=== PATIENT | female | born 1960 | race Caucasian/White ===

== ENCOUNTER 2016-10-27 13:47 | Emergency (ER) | payer OTHER ==
[2016-10-27 13:53] VITALS: PULSE 88; BMI 31.2
[2016-10-27] MEDS ORDERED: ALBUTEROL SO4 2.5/IPRATROPIUM 0.5 INH SOL 3 ML VIAL.NEB. NEB ONE ×2 (14:59→15:10)
--- NOTE | 2016-10-27 15:09 | PDOC ---
History of Present Illness - General History Source: Patient Exam Limitations: No Limitations - History of Present Illness Initial Comments: 10/27/16 16:53 The patient is a 56-year-old female, accompanied by daughter, with a significant past medical history of asthma, hypertension, acid reflux, peptic ulcers, costochondritis, and arthritis, who presents to the emergency department with a severe cough and shortness of breath for three weeks. The patient reports a persistent cough and shortness of breath, with associated yellow phlegm. She reports chest pain and a burning sensation in her throat secondary to the coughing. She reports waking up sweating and snoring more than usual. The patient had a recent episode of bronchitis and she finished her antibiotics treatment (augmentin and prednisone) one week ago. The patient denies headache and dizziness. The patient denies fever, nausea, vomit, diarrhea and constipation. The patient denies any urinary complaints. Allergies: codeine Social history: Denies smoking, ETOH, or recreational drug use PMD - Dr. Joe Leyva Professor Of Economics: Dr. Elen Uribe <Gypsy Pablo - Last Filed: 10/27/16 16:53> - General History Source: Patient Exam Limitations: No Limitations <Tiera Mcmahan - Last Filed: 10/30/16 10:20> - General Chief Complaint: Blood Pressure Problem Stated Complaint: SEVERE COUGH/HTN/SOB Time Seen by Provider: 10/27/16 14:24 Past History <Gypsy Pablo - Last Filed: 10/27/16 16:53> - Past Medical History Asthma: Yes Cardiac Disorders: Yes (costocondritis, cardiac cath) HTN: Yes - Surgical History Orthopedic Surgery: Yes (left knee arthroscopy) - Psycho/Social/Smoking Cessation Hx Anxiety: No Suicidal Ideation: No Smoking History: Never smoked Have you smoked in the past 12 months: No Information on smoking cessation initiated: No Hx Alcohol Use: No Drug/Substance Use Hx: No Substance Use Type: None <Tiera Mcmahan - Last Filed: 10/30/16 10:20> - Past Medical History Allergies/Adverse Reactions: Allergies Allergy/AdvReac Type Severity Reaction Status Date / Time codeine Allergy Intermediate TACHYCARDIA Verified 10/27/16 13:53 Home Medications: Ambulatory Orders Aspirin [ASA -] 81 mg PO DAILY 03/12/15 Olmesartan/Amlodipin/Hcthiazid [Tribenzor 20-5-12.5 mg Tablet] 1 each PO ASDIR 03/12/15 Ranitidine [Zantac -] 150 mg PO DAILY 03/12/15 Albuterol 0.083% Nebulizer Lu [Ventolin 0.083% Nebulizer Soln -] 1 neb NEB Q6H 10/27/16 Albuterol Sulfate [Proair Respiclick] 90 mcg IH QID 10/27/16 Fluticasone/Vilanterol [Breo Ellipta 100-25 Mcg INH] 1 each IH DAILY 10/27/16 Montelukast Na [Singulair -] 10 mg PO HS 10/27/16 Nebivolol HCl [Bystolic] 5 mg PO DAILY 10/27/16 Prednisone 10 mg PO BID 10/27/16 Review of Systems - Review of Systems Able to Perform ROS?: Yes Comments:: 10/27/16 16:53 GENERAL/CONSTITUTIONAL: Present: (+) diaphoresis No: fever, weakness, loss of appetite. HEAD, EYES, EARS, NOSE AND THROAT: Present: (+) throat discomfort No: change in vision, ear pain, discharge. CARDIOVASCULAR: Present: (+) chest pain No: lightheadedness, palpitations, syncope RESPIRATORY: Present: (+) cough, (+) shortness of breath No: wheezing, hemoptysis, stridor. GASTROINTESTINAL: No: nausea, vomiting, abdominal cramping, diarrhea, rectal bleeding, constipation. GENITOURINARY: No: dysuria, hematuria, frequency, urgency, flank pain. MUSCULOSKELETAL: No: back pain, neck pain, joint pain, muscle swelling or pain SKIN AND BREASTS: No: lesions, pallor, rash or easy bruising. NEUROLOGIC: No: headache, vertigo, paresthesias, weakness ENDOCRINE: No: unexplained weight gain or loss HEMATOLOGIC/LYMPHATIC: No: anemia, easy bleeding, swelling nodes <Pablo,Gypsy - Last Filed: 10/27/16 16:53> *Physical Exam - Vital Signs Last Vital Signs Temp Pulse Resp BP Pulse Ox 99.5 F 88 22 127/80 99 10/27/16 15:20 10/27/16 13:50 10/27/16 15:20 10/27/16 15:20 10/27/16 13:50 - Physical Exam Comments: 10/27/16 16:54 GENERAL: The patient is in no acute distress. HEAD: Normal with no signs of trauma. EYES: PERRLA, EOMI, sclera anicteric, conjunctiva clear. ENT: Ears normal, nares patent, oropharynx clear without exudates. Moist mucous membranes. NECK: Normal range of motion, supple without lymphadenopathy, JVD, or masses. LUNGS: (+) Inspiratory and expiratory wheezing and rhonchi. HEART:Regular rate and rhythm, normal S1 and S2 without murmur, rub or gallop. ABDOMEN: Soft, nontender, normoactive bowel sounds. No guarding, no rebound. EXTREMITIES: Normal range of motion, no edema. No clubbing or cyanosis. No erythema, or tenderness. NEUROLOGICAL: Cranial nerves II through XII grossly intact. Normal speech. No focal neurological deficits. MUSCULOSKELETAL: Back non-tender to palpation, no CVA tenderness SKIN: Warm, Dry, normal turgor, no rashes or lesions noted. <Gypsy Pablo - Last Filed: 10/27/16 16:53> - Vital Signs Last Vital Signs Temp Pulse Resp BP Pulse Ox 88 18 160/111 99 10/27/16 13:50 10/27/16 13:50 10/27/16 13:50 10/27/16 13:50 <Tiera Mcmahan - Last Filed: 10/30/16 10:20> Heart Score/ECG Review #1 ECG reviewed & interpreted by me at: 16:05 10/27/16 16:05 Twelve-lead EKG was performed and reviewed by me. There is normal sinus rhythm with a normal rate of 60 bpm. The axis is normal. The intervals are normal - pr : 128ms, QRS:98ms, QTc:432ms. There are no ST elevations or depressions. T waves nml. <Tiera Mcmahan - Last Filed: 10/30/16 10:20> ED Treatment Course - LABORATORY CBC & Chemistry Diagram: 10/27/16 15:16 10/27/16 15:30 - ADDITIONAL ORDERS Additional order review: Laboratory Results 10/27/16 15:30 Sodium 142 Potassium 3.7 Chloride 106 Carbon Dioxide 28 Anion Gap 8 BUN 13 Creatinine 0.7 Random Glucose 102 Calcium 9.7 10/27/16 15:16 RBC 5.05 MCV 86.1 MCHC 31.9 L RDW 14.3 MPV 9.9 Neutrophils % 74.4 Lymphocytes % 14.9 D Monocytes % 10.1 Eosinophils % 0.2 Basophils % 0.4 - RADIOLOGY Radiograph Interpretation: 10/27/16 16:54 RAD/CHEST X-RAY PORTABLE Reviewed by: Dr. Tiera Mcmahan Interpreted by: Dr. Jeronimo Jay IMPRESSION: No acute pulmonary disease is present. - Medications Given in the ED: ED Medications Discontinued Medications Generic Name Dose Route Start Last Admin Trade Name Alli PRN Reason Stop Dose Admin Albuterol/Ipratropium 1 amp 10/27/16 15:10 10/27/16 15:10 Duoneb - NEB 10/27/16 15:11 1 amp ONCE ONE Administration Methylprednisolone Sodium Succinate 125 mg 10/27/16 15:10 10/27/16 15:28 Solu-Medrol - IVPB 10/27/16 15:11 125 mg ONCE ONE Administration <Gypsy Pablo - Last Filed: 10/27/16 16:53> - LABORATORY CBC & Chemistry Diagram: 10/27/16 15:16 10/27/16 15:30 <Tiera Mcmahan - Last Filed: 10/30/16 10:20> Medical Decision Making - Medical Decision Making A portion of this note was documented by scribe services under my direction. I have reviewed the details of the note, within reason, and agree with the documentation with the following case summary and management plan written by me. Nursing documentation reviewed and incorporated into medical decision making Ms Jared Alcantar is a 56 yo F with a history of Asthma, angina who presents to the ER with a complaint of shortness of breath, coughing, wheezing Pt states she has had these symptoms for the past 2 weeks No associate fevers (although she has been noted to be warm at night) No recent travel No ill contacts Pt has been coughing almost non stop She reportedly does not like taking albuterol She completed a course of Augmentin Is currently on Prednisone DD: Asthma exacerbation, bronchitis, pneumonia 10/27/16 16:09 Laboratory Tests 10/27/16 15:16 WBC 9.1 Hgb 13.9 Hct 43.5 Plt Count 224 Neutrophils % 74.4 Lymphocytes % 14.9 D 10/27/16 16:35 CXR demonstrates no evidence of Pneumonia Pt improved s/p 1 neb and Solumedrol Will discharge to home Pt to continue Prednisone continue nebs as needed Pt to follow up with Professor Of Economics Can prescribe tesselon pearles to help with cough if patient wants <Tiera Mcmahan - Last Filed: 10/30/16 10:20> *DC/Admit/Observation/Transfer - Attestations Scribe Attestion: 10/27/16 16:54 Documentation prepared by Gypsy Pablo, acting as medical sociologist for Tiera Mcmahan MD. <Gypsy Pablo - Last Filed: 10/27/16 16:53> - Discharge Dispostion Admit: No <Tiera Mcmahan - Last Filed: 10/30/16 10:20> Diagnosis at time of Disposition: Asthma exacerbation - Discharge Dispostion Disposition: HOME Condition at time of disposition: Improved - Patient Instructions Printed Discharge Instructions: DI for Asthma -- Adult, DI for Cough -- Adult Additional Instructions: Ms Jared Alcantar Thank you for coming in to the ER today Please continue your prednisone as previously prescribed Please follow up with your designer Please monitor yourself for fevers Return to the ER for any other concerns or complaints
[2016-10-27] MEDS ORDERED: methylPREDNISolone NA SUCC 125 MG/2 ML VIAL IVPB ONE (15:10)
[2016-10-27] MEDS ORDERED: methylPREDNISolone NA SUCC 125 MG/2 ML VIAL ONE (15:24)
[2016-10-27 15:29] VITALS: BP 127/80; TEMP 99.5
[2016-10-27 16:00] LABS: BASOPHIL 0.4 % (0-2.0); EOSINOPHIL 0.2 % (0-4.5); MCH 27.5 pg (25.7-33.7); MCHC 31.9 g/dl (32.0-36.0); MEAN CELL VOLUME 86.1 fl (80-96); MEAN PLT VOLUME 9.9 fl (7.5-11.1); NEUTROPHILS 74.4 % (42.8-82.8); PLATELET COUNT 224 K/MM3 (134-434); RDW 14.3 % (11.6-15.6); WHITE BLOOD COUNT 9.1 K/mm3 (4.0-10.0)
[2016-10-27 16:10] LABS: CALCIUM 9.7 mg/dL (8.5-10.1); CREATININE 0.7 mg/dL (0.55-1.02)
--- NOTE | 2016-10-28 11:22 | EKG ---
Test Reason : Blood Pressure : / mmHG Vent. Rate : 060 BPM Atrial Rate : 060 BPM P-R Int : 128 ms QRS Dur : 098 ms QT Int : 432 ms P-R-T Axes : 057 008 006 degrees QTc Int : 432 ms NORMAL SINUS RHYTHM NO PREVIOUS ECGS AVAILABLE Confirmed by RADHA SCHMITZ MD ([id number]) on 10/28/2016 11:22:06 AM Referred By: Confirmed By:RADHA SCHMIZT MD
== END 2016-10-27 16:58 | disposition home or self-care (01) ==
LOC: JER 13:47
PROC: 3E0F7GC Introduction of Other Therapeutic Substance into Respiratory Tract, Via Natural or Artificial Opening (ICD-10-PCS; principal; 2016-10-27)
PROC: 3E0333Z Introduction of Anti-inflammatory into Peripheral Vein, Percutaneous Approach (ICD-10-PCS; 2016-10-27)
DX: J45.901 Unspecified asthma with (acute) exacerbation (principal); M94.0 Chondrocostal junction syndrome [Tietze]; I10 Essential (primary) hypertension
CPT/HCPCS: 36415; 71010-TC; 80048; 85025; 93005; 93010; 94640; 96374; 99284-25

== ENCOUNTER 2019-02-17 05:05 | Observation (INO) | payer OTHER ==
--- NOTE | 2019-02-17 05:11 | PDOC ---
History of Present Illness - General Stated Complaint: CHEST PAIN Time Seen by Provider: 02/17/19 05:11 - History of Present Illness Initial Comments: 02/17/19 05:13 The patient is a 58 year old female with a history of HTN, Costocondritis, Asthma who presents for evaluation of chest pain and palpitations. The patient is accompanied by family who assist in providing the history. They report onset of left sided chest pressure-like pain with associated palpitations and shortness of breath earlier today that has been persistent prompting her presentation to the ED for further evaluation. They note that the patient's blood pressure was elevated at home as well. The patient otherwise denies fevers, chills, nausea, vomiting, abdominal pain, or changes with urination or bowel movements. Past History - Past Medical History Allergies/Adverse Reactions: Allergies Allergy/AdvReac Type Severity Reaction Status Date / Time codeine Allergy Intermediate TACHYCARDIA Verified 02/17/19 05:23 Home Medications: Ambulatory Orders Aspirin [ASA -] 81 mg PO DAILY 03/12/15 Olmesartan/Amlodipin/Hcthiazid [Tribenzor 20-5-12.5 mg Tablet] 1 each PO ASDIR 03/12/15 Albuterol 0.083% Nebulizer Lu [Ventolin 0.083% Nebulizer Soln -] 1 neb NEB Q6H 10/27/16 Albuterol Sulfate [Proair Respiclick] 90 mcg IH QID 10/27/16 Fluticasone/Vilanterol [Breo Ellipta 100-25 Mcg INH] 1 each IH DAILY 10/27/16 Montelukast Na [Singulair -] 10 mg PO HS 10/27/16 Nebivolol HCl [Bystolic] 5 mg PO DAILY 10/27/16 Amlodipine Besylate [Norvasc -] 5 mg PO DAILY #30 tablet 02/17/19 Pravastatin Sodium 20 mg PO HS 02/17/19 Tizanidine HCl [Zanaflex (Nf) -] 2 mg NR DAILY 02/17/19 Asthma: Yes Cardiac Disorders: Yes (costocondritis, cardiac cath) COPD: No HTN: Yes - Surgical History Orthopedic Surgery: Yes (left knee arthroscopy) - Suicide/Smoking/Psychosocial Hx Smoking History: Never smoked Have you smoked in the past 12 months: No Hx Alcohol Use: No Drug/Substance Use Hx: No Substance Use Type: None Review of Systems - Review of Systems Comments:: 02/17/19 05:15 Constitutional: No fevers, chills, fatigue, malaise HEENT: No Rhinorrhea, nasal congestion, visual changes Cardiovascular: Chest pain, palpitations. No syncope, lightheadedness Respiratory: SOB. No Cough, Hemoptysis, Gastrointestinal: No Abdominal pain, Nausea, Vomiting, Constipation, Diarrhea, Melena Genitourinary: No Dysuria, Frequency, Urgency, Hesitancy, Hematuria, Flank pain Musculoskeletal: No Myalgia, arthralgia Skin: No rashes, itching, bruising, pallor Neurologic: No Headache, Dizziness, Numbness, Weakness, or Tingling Psychiatric: No Hallucinations. No SI or HI *Physical Exam - Physical Exam Comments: 02/17/19 05:16 General Appearance: Nourished. No Apparent Distress HEENT: EOMI, STEVEN. No Pharyngeal Erythema, Tonsillar Exudate, Tonsillar Erythema Neck: No Cervical Lymphadenopathy Respiratory/Chest: Lungs Clear, Normal Breath Sounds. No Crackles, Rales, Rhonchi, Wheezing Cardiovascular: Regular Rhythm, Regular Rate. No Murmur, Gallops, Rubs Gastrointestinal/Abdominal: Normal Bowel Sounds, Soft. No Guarding, Rebound, Tenderness Musculoskeletal: No CVA Tenderness Extremity: Normal Capillary Refill Integumentary: Normal Color, Dry, Warm Neurologic: Fully Oriented, Alert, Normal Mood/Affect, Normal Response, Heart Score/ECG Review - History History: Moderately suspicious - Electrocardiogram EKG: Normal - Age Age: 45-65 - Risk Factors Risk Factors Heart Score: Yes Hx Hypertension, Yes Positive family hx of cardiac disease, Yes Hx Obesity Based on the list above the patient has:: >/=3 risk factors or Hx atherosclerotic disease - Troponin Troponin: </= normal limit - Score Heart Score - Total: 4 #1 ECG reviewed & interpreted by me at: 05:53 02/17/19 05:53 Normal Sinus Rhythm No Acute ST changes HR 60 QRS 88 QTc 424 ED Treatment Course - LABORATORY CBC & Chemistry Diagram: 02/17/19 05:18 02/17/19 05:18 Medical Decision Making - Medical Decision Making 02/17/19 05:17 The patient is a 58 year old female with a history of HTN, Costocondritis, Asthma who presents for evaluation of chest pain and palpitations. Differential includes but is not limited to: ACS, Arrhythmia, Thyroid disfunction, Musculoskeletal, Infectious, Metabolic Derangement. Given the patient's history and physical exam, we will obtain a cbc, cmp, troponin, bnp, tsh, ekg, chest plain film to evaluate further. We will treat with tylenol and continue to monitor and reassess while here in the ED. 02/17/19 06:59 CBC is unremarkable. CMP, troponin, bnp, tsh are still pending. Patient signed out to Dr. Bernal pending lab results. *DC/Admit/Observation/Transfer Diagnosis at time of Disposition: Angina at rest Chest pain Qualifiers: Chest pain type: unspecified Qualified Code(s): R07.9 - Chest pain, unspecified - Discharge Dispostion Disposition: HOME Condition at time of disposition: Improved - Referrals - Patient Instructions - Post Discharge Activity
[2019-02-17] MEDS ORDERED: ACETAMINOPHEN 1000 MG/100 ML VIAL (NON FORMULARY) IVPB ONE (05:12)
[2019-02-17] MEDS ORDERED: ACETAMINOPHEN INJECTION 100 ML IVPB ONE (05:22)
[2019-02-17 05:23] VITALS: BMI 30.4
[2019-02-17 05:46] LABS: BASO % 0.7 % (0-2.0); EOS % 0.9 % (0-4.5); HEMATOCRIT 40.7 % (32.4-45.2); HEMOGLOBIN 13.9 GM/dL (10.7-15.3); MCH 28.7 pg (25.7-33.7); MCHC 34.1 g/dl (32.0-36.0); MEAN CELL VOLUME 84.1 fl (80-96); MEAN PLT VOLUME 9.5 fl (7.5-11.1); MONO % 7.4 % (3.8-10.2); PLATELET COUNT 270 K/MM3 (134-434); RBC 4.84 M/mm3 (3.60-5.2); WHITE BLOOD COUNT 9.7 K/mm3 (4.0-10.0)
[2019-02-17] MEDS ORDERED: NITROGLYCERIN SUBLINGUAL 1/150 0.4 MG TAB SL ONE (06:27)
[2019-02-17] MEDS ORDERED: NITROGLYCERIN SUBLINGUAL 1/150 0.4 MG TAB ONE (06:29)
--- NOTE | 2019-02-17 07:11 | PDOC ---
*Physical Exam - Vital Signs Last Vital Signs Temp Pulse Resp BP Pulse Ox 97.7 F 65 16 153/81 02/17/19 05:05 02/17/19 05:05 02/17/19 05:05 02/17/19 05:05 <Stephanie Bernal - Last Filed: 02/17/19 07:53> - Vital Signs Last Vital Signs Temp Pulse Resp BP Pulse Ox 97.7 F 57 L 17 134/78 100 02/17/19 05:05 02/17/19 07:41 02/17/19 07:41 02/17/19 07:41 02/17/19 07:43 <Sylvie Hess - Last Filed: 02/17/19 07:59> ED Treatment Course - LABORATORY CBC & Chemistry Diagram: 02/17/19 05:18 02/17/19 05:18 - ADDITIONAL ORDERS Additional order review: 02/17/19 05:18 RBC 4.84 MCV 84.1 MCHC 34.1 RDW 13.0 MPV 9.5 Neutrophils % 55.0 D Lymphocytes % 36.0 D Monocytes % 7.4 D Eosinophils % 0.9 D Basophils % 0.7 - Medications Given in the ED: ED Medications Discontinued Medications Generic Name Dose Route Start Last Admin Trade Name Freq PRN Reason Stop Dose Admin Acetaminophen 1,000 mg 02/17/19 05:12 02/17/19 05:37 Ofirmev Injection - IVPB 02/17/19 05:13 1,000 mg ONCE ONE Administration Nitroglycerin 0.4 mg 02/17/19 06:27 02/17/19 06:30 Nitrostat - SL 02/17/19 06:28 0.4 mg ONCE ONE Administration <Stephanie Bernal - Last Filed: 02/17/19 07:53> - LABORATORY CBC & Chemistry Diagram: 02/17/19 05:18 02/17/19 05:18 - ADDITIONAL ORDERS Additional order review: Laboratory Results 02/17/19 05:18 Sodium 145 Potassium 3.7 Chloride 110 H Carbon Dioxide 27 Anion Gap 7 L BUN 13 Creatinine 0.7 Creat Clearance w eGFR 85.95 Random Glucose 101 Calcium 9.9 Total Bilirubin 0.3 AST 26 ALT 29 Alkaline Phosphatase 106 Creatine Kinase 152 Creatine Kinase Index 0.9 CK-MB (CK-2) 1.4 Troponin I < 0.02 B-Natriuretic Peptide 77.6 Total Protein 7.0 Albumin 3.9 TSH 3.80 H 02/17/19 05:18 RBC 4.84 MCV 84.1 MCHC 34.1 RDW 13.0 MPV 9.5 Neutrophils % 55.0 D Lymphocytes % 36.0 D Monocytes % 7.4 D Eosinophils % 0.9 D Basophils % 0.7 - Medications Given in the ED: ED Medications Discontinued Medications Generic Name Dose Route Start Last Admin Trade Name Alli PRN Reason Stop Dose Admin Acetaminophen 1,000 mg 02/17/19 05:12 02/17/19 05:37 Ofirmev Injection - IVPB 02/17/19 05:13 1,000 mg ONCE ONE Administration Nitroglycerin 0.4 mg 02/17/19 06:27 02/17/19 06:30 Nitrostat - SL 02/17/19 06:28 0.4 mg ONCE ONE Administration <Sylvie Hess - Last Filed: 02/17/19 07:59> Medical Decision Making - Medical Decision Making Pt was signed out to me by resident Dr. Hastings, who explained the presentation , ED course, any pending results, and needed interventions. Pending results include chemistry. Pt is currently stable and is lying comfortably. Pt has no active chest pain at this time. 02/17/19 07:12 CMP WNL, troponin negative, BNP 77 Paged hospitalist team for further observation and cardiac consultation. 02/17/19 07:41 Pt admitted to hospitalist team (Dr. Heller). Pt stable and does not currently complain of chest pain, which resolved after tylenol and SL NG. Pt is able to lie comfortably in the bed. Pending admission upstairs. Will obtain second troponin around 8:30 am. 02/17/19 07:53 <Stephanie Bernal - Last Filed: 02/17/19 07:53> - Medical Decision Making pt signed out from overnight team, Dr Mcnamara pending labs, workup heart score 4,moderate risk for ACS/MACE, first trop neg, EKG unremarkable, Admit tele obs for cp, serial trop/EKg and TANIA 02/17/19 07:58 <Sylvie Hess - Last Filed: 02/17/19 07:59> *DC/Admit/Observation/Transfer - Discharge Dispostion Decision to Admit order: Yes <Stephanie Bernal - Last Filed: 02/17/19 07:53> <Sylvie Hess - Last Filed: 02/17/19 07:59> Diagnosis at time of Disposition: Angina at rest Chest pain Qualifiers: Chest pain type: unspecified Qualified Code(s): R07.9 - Chest pain, unspecified - Discharge Dispostion Condition at time of disposition: Stable - Patient Instructions - Post Discharge Activity
[2019-02-17 07:27] LABS: ALBUMIN 3.9 g/dl (3.4-5.0); ALK PHOS 106 U/L (45-117); ANION GAP 7 MMOL/L (8-16); BILIRUBIN,TOTAL 0.3 mg/dL (0.2-1); BLOOD UREA NITROGEN 13 mg/dL (7-18); CALCIUM 9.9 mg/dL (8.5-10.1); CHLORIDE 110 mmol/L (98-107); CO2 27 mmol/L (21-32); CREATININE 0.7 mg/dL (0.55-1.3); GLUCOSE,RANDOM 101 mg/dL (74-106); N-TERMINAL BNP 77.6 pg/ml (5-125); POTASSIUM 3.7 mmol/L (3.5-5.1); SGOT/AST 26 U/L (15-37); SGPT/ALT 29 U/L (13-61); SODIUM 145 mmol/L (136-145)
[2019-02-17] MEDS ORDERED: ALBUTEROL SO4 0.083% IH SOL 2.5 MG/3 ML VIAL.NEB. NEB PRN (08:21)
--- NOTE | 2019-02-17 08:23 | HP ---
Admitting History and Physical - Primary Care Physician PCP: Dr Cesar Katz - Admission Chief Complaint: Chest pain History of Present Illness: Pt is a 58 yo F with PMHx of HTN, Costochondritis, Asthma, angina who presents with chest pain x 1 day. Pt reports chest pain that started around 1am, pressure like, 9/10, below her L breast radiating to the left arm. The pain started suddenly while at rest (sitting and watching TV), was associated with SOB. Was intermittent, lasting 5mins at every interval for about an hour till she presented in the ED. Pt reports persistently high BP for the past week, last documented at home was 168/108. There was associated headache and blurry vision associated with the chest pain, shich has since resolved. In the ED she received tylenol, and sublingual NG, and the pain stopped. She has since remained chest pain free. Pt reports having a stress test last year May [address] Mackenzie Williamson [phone] ([facility]), but had a cardiac catheterization in 2012 after chest pain, without stents. ED course was notable for: BP-153/81 Subling NTG Iv tylenol EKG- normal Trops -negative x1 History Source: Patient, Family Member Limitations to Obtaining History: No Limitations - Past Medical History Cardiovascular: Yes: HTN Pulmonary: Yes: Asthma - Past Surgical History Past Surgical History: Yes: Joint Replacement (B/L arthroscopic Knee surgeries- L knee-2016, R knee-2012, Ankle surgery 2012), Vein Stripping/Ligation (R LE). No: Stent (Cardiac catheterization 2012 without stents-by Dr Dannie Mae [phone]) - Smoking History Smoking history: Never smoked Have you smoked in the past 12 months: No - Alcohol/Substance Use Hx Alcohol Use: No - Social History Usual Living Arrangement: Yes: With Child ADL: Independent History of Recent Travel: No Home Medications - Allergies Allergies/Adverse Reactions: Allergies Allergy/AdvReac Type Severity Reaction Status Date / Time codeine Allergy Intermediate TACHYCARDIA Verified 02/17/19 05:23 - Home Medications Home Medications: Ambulatory Orders Aspirin [ASA -] 81 mg PO DAILY 03/12/15 Olmesartan/Amlodipin/Hcthiazid [Tribenzor 20-5-12.5 mg Tablet] 1 each PO ASDIR 03/12/15 Ranitidine [Zantac -] 150 mg PO DAILY 03/12/15 Albuterol 0.083% Nebulizer Lu [Ventolin 0.083% Nebulizer Soln -] 1 neb NEB Q6H 10/27/16 Albuterol Sulfate [Proair Respiclick] 90 mcg IH QID 10/27/16 Fluticasone/Vilanterol [Breo Ellipta 100-25 Mcg INH] 1 each IH DAILY 10/27/16 Montelukast Na [Singulair -] 10 mg PO HS 10/27/16 Nebivolol HCl [Bystolic] 5 mg PO DAILY 10/27/16 Review of Systems - Review of Systems Constitutional: denies: Chills, Fever Eyes: reports: Blurred Vision Respiratory: denies: Cough, Exercise Intolerance Genitourinary: denies: Burning, Dysuria Neurological: denies: Change in LOC, Confusion, Dizziness, Numbness, Parasthesia , Syncope, Tremors Psychiatric: denies: Anxiety Physical Examination Vital Signs: Vital Signs Temperature 97.7 F 02/17/19 05:05 Pulse Rate 57 L 02/17/19 07:41 Respiratory Rate 17 02/17/19 07:41 Blood Pressure 134/78 02/17/19 07:41 O2 Sat by Pulse Oximetry (%) 100 02/17/19 07:43 Constitutional: Yes: No Distress Eyes: Yes: Conjunctiva Clear, EOM Intact. No: Sclera Icterus HENT: Yes: Atraumatic. No: Pharyngeal Erythema Neck: Yes: Supple Cardiovascular: Yes: Regular Rate and Rhythm, S1, S2. No: JVD, Murmur Respiratory: Yes: CTA Bilaterally Gastrointestinal: Yes: Normal Bowel Sounds, Soft Musculoskeletal: No: Back Pain Edema: No Edema: RLE: Trace (Prior venous stripping) Peripheral Pulses WNL: Yes Neurological: Yes: Alert, Oriented. No: Aphasia, Asterixis, Confusion, Facial Droop, Lethargy, Loss of Sensation, Pre-Existing Deficit ...Motor Strength: WNL Psychiatric: Yes: Alert, Oriented Labs: CBC, BMP 02/17/19 05:18 02/17/19 05:18 Imaging - Results Chest X-ray: Report Reviewed, Image Reviewed (No acute pathology) Assessment/Plan Ambulatory Orders Aspirin [ASA -] 81 mg PO DAILY 03/12/15 Olmesartan/Amlodipin/Hcthiazid [Tribenzor 20-5-12.5 mg Tablet] 1 each PO ASDIR 03/12/15 Ranitidine [Zantac -] 150 mg PO DAILY 03/12/15 Albuterol 0.083% Nebulizer Lu [Ventolin 0.083% Nebulizer Soln -] 1 neb NEB Q6H 10/27/16 Albuterol Sulfate [Proair Respiclick] 90 mcg IH QID 10/27/16 Fluticasone/Vilanterol [Breo Ellipta 100-25 Mcg INH] 1 each IH DAILY 10/27/16 Montelukast Na [Singulair -] 10 mg PO HS 10/27/16 Nebivolol HCl [Bystolic] 5 mg PO DAILY 10/27/16 Current Medications Albuterol Sulfate (Ventolin 0.083% Nebulizer Soln -) 1 amp NEB Q6H PRN PRN Reason: WHEEZING Amlodipine Besylate (Norvasc -) 5 mg PO DAILY [facility] Aspirin (Asa -) 81 mg PO DAILY DEEPA Atorvastatin Calcium (Lipitor -) 80 mg PO HS DEEPA Hydrochlorothiazide (Hctz -) 12.5 mg PO DAILY DEEPA Montelukast Sodium (Singulair -) 10 mg PO HS DEEPA Nebivolol (Bystolic -) 5 mg PO DAILY DEEPA Non-Formulary Medication (Fluticasone/Vilanterol [Breo Ellipta 100-25 Mcg Inh]) 1 each IH DAILY DEEPA Ranitidine HCl (Zantac -) 150 mg PO DAILY DEEPA Valsartan (Diovan -) 160 mg PO DAILY DEEPA Assessment/Plan: Pt is a 58 yo F with PMHx of HTN, Costochondritis, Asthma, angina who presents with chest pain x 1 day #Typical Chest pain Started at rest, associated with SOB, relieved with subling NGL Prior hx of angina -on bystolic Prior cardiac cath w/out stents, recent negative stress test Initial trops -negative- repeat ECHO Resume ASA Start Lipitor Resume BP meds Cardiac monitoring #Hypertension Elevated at home and at presentation Resume home BP meds monitor Repeat trops [id number] 60bpm, nl, intervals and axis, no RIAZ/STD, QTC-424 ECHO #Asthma Mild Intermittent asthma Controlled on Breo Last use of ventolin-1month ago Not in exacerbation Albuterol as needed #Costochondritis No chest pain at this time #FEN No standing fluids Monitor lytes, replete as needed Sodium controlled diet #PPx Resume home ranitidine Lovenox 40mg sq #Dispo Tele obs Pending ECHO and negative trops Visit type - Emergency Visit Emergency Visit: Yes ED Registration Date: 02/17/19 Care time: The patient presented to the Emergency Department on the above date and was hospitalized for further evaluation of their emergent condition. - New Patient This patient is new to me today: Yes Date on this admission: 02/17/19 - Critical Care Critical Care patient: No
[2019-02-17] MEDS ORDERED: PATIENT'S OWN MEDICATION (NON-FORMULARY) (Olmesartan/Amlodipin/Hcthiazid [Tribenzor 20-5-1 PO SCH (08:30)
--- NOTE | 2019-02-17 08:34 | EKG ---
Test Reason : Blood Pressure : / mmHG Vent. Rate : 060 BPM Atrial Rate : 060 BPM P-R Int : 170 ms QRS Dur : 088 ms QT Int : 424 ms P-R-T Axes : 061 008 022 degrees QTc Int : 424 ms NORMAL SINUS RHYTHM NORMAL ECG WHEN COMPARED WITH ECG OF 17-FEB-2019 05:31, PREMATURE VENTRICULAR COMPLEXES ARE NO LONGER PRESENT Confirmed by MD KATELYNN, YINKA ([id number]) on 02/17/2019 8:33:24 AM Referred By: Ronak MARTINEZ Confirmed By:YINKA PACE MD
[2019-02-17] MEDS ORDERED: ASPIRIN 81 MG CHEWABLE TABLETS ONE (08:41)
[2019-02-17] MEDS ORDERED: RANITIDINE HCL 150 MG TABLET (FP) ONE (08:41)
[2019-02-17] MEDS ORDERED: RANITIDINE HCL 150 MG TABLET (FP) PO SCH (10:00)
[2019-02-17] MEDS ORDERED: NEBIVOLOL 5 MG TABLET (FP) PO SCH (10:00)
[2019-02-17] MEDS ORDERED: VALSARTAN 160 MG TABLET (UD) PO SCH (10:00)
[2019-02-17] MEDS ORDERED: ENOXAPARIN NA (PORCINE) 40 MG/0.4 ML DISP.SYRIN SQ SCH (10:00)
[2019-02-17] MEDS ORDERED: HYDROCHLOROTHIAZIDE 12.5 MG CAPSULE (FP) PO SCH (10:00)
[2019-02-17] MEDS ORDERED: amLODIPine BESYLATE 5 MG TABLET (FP) PO SCH (10:00)
[2019-02-17] MEDS ORDERED: ASPIRIN 81 MG CHEWABLE TABLETS PO SCH (10:00)
[2019-02-17 11:07] VITALS: TEMP 98.4
--- NOTE | 2019-02-17 12:39 | ECHO ---
Version: 1 Name: KIKI JACOBO Exam: Adult Echocardiogram Study Date: 02/17/2019, 10:26 AM Age: 58 Years MMode/2D Measurements & Calculations IVSd: 0.76 cm LVIDs: 3.2 cm LVIDd: 4.4 cm LVPWd: 0.82 cm LVOT diam: 1.94 cm Ao root diam: 2.7 cm LA dimension: 3.4 cm Doppler Measurements & Calculations MV E max rudi: 70.1 cm/sec Med E/e': 7.9 MV A max rudi: 84.9 cm/sec Med Peak E' Rudi: 8.9 cm/sec MV E/A: 0.83 Lat E/e': 5.8 Lat Peak E' Rudi: 12.2 cm/sec Ao max P.1 mmHg GELACIO(I,D): 2.7 cm Ao mean P.9 mmHg LV V1 mean: 79.9 cm/sec Ao V2 max: 142.7 cm/sec LV V1 mean P.1 mmHg TR max rudi: 205.2 cm/sec TR max P.8 mmHg Left Ventricle The left ventricular size, thickness and function are normal. Ejection Fraction = 55-60%.. E/A rever belkis consistent with but not diagnostic of poor LV compliance. Right Ventricle The right ventricle is normal in size and function. Atria Normal left and right atrial size and function. Mitral Valve There is mild mitral valve thickening. There is trace mitral regurgitation. Tricuspid Valve The tricuspid valve is not well visualized, but is grossly normal. There is trace tricuspid regurgit ation. Right ventricular systolic pressure is normal. Aortic Valve There is mild to moderate aortic sclerosis.;. No hemodynamically significant valvular aortic stenosi s. Pulmonic Valve The pulmonic valve is not well seen, but is grossly normal. Great Vessels The aortic root is normal size. Pericardium/Pleura There is no pericardial effusion. Summary Statements The left ventricular size, thickness and function are normal. Ejection Fraction = 55-60%. The right ventricle is normal in size and function. Normal left and right atrial size and function. There is mild to moderate aortic sclerosis. No hemodynamically significant valvular aortic stenosis. There is mild mitral valve thickening. There is trace mitral regurgitation. MD Marcos Peng02/17/2019, 11:38 AM Ordering Physician: Francia Beckman Performed By: Adia Roth
--- NOTE | 2019-02-17 15:41 | PN ---
Teaching Attending Note Name of Resident: Francia Beckman ATTENDING PHYSICIAN STATEMENT I saw and evaluated the patient. I reviewed the resident's note and discussed the case with the resident. I agree with the resident's findings and plan as documented except as follows: SUBJECTIVE: Feels better with chest pain but now c/o headache. Other ROS are negative. OBJECTIVE: Unremarkable. Chest pain Not reproducible . ASSESSMENT AND PLAN: Pt is a 58 yo F with PMHx of HTN, Costochondritis, Asthma, angina who presents with chest pain x 1 day # Chest pain probably 2/2 Accelerated HTN Started at rest, associated with SOB, relieved with subling NGL Prior hx of angina -on bystolic Prior cardiac cath w/out stents, recent negative stress test Initial trops -negative- repeat ECHO >>> Unremarkable, w/o any RWM abn. Resume ASA Start Lipitor Resume BP meds Cardiac monitoring f/u with Cardio as outpt. #Hypertension >> Uncontrolled since been on steroid inj. in right shoulder , as per pt. Elevated at home and at presentation Resume home BP meds monitor [id number] 60bpm, nl, intervals and axis, no RIAZ/STD, QTC-424 #Asthma Mild Intermittent asthma Controlled on Breo Last use of ventolin-1month ago Not in exacerbation Albuterol as needed #FEN No standing fluids Monitor lytes, replete as needed Sodium controlled diet #PPx Resume home ranitidine Lovenox 40mg sq #Dispo Tele obs Pending clinical ( BP) stabilization. D/C planning in 24 hours. Plan d/w the patient and the son in details at bedside. Plan d/w the resident as well.
[2019-02-17] MEDS ORDERED: ACETAMINOPHEN 325 MG TABLET (FP) PO PRN (16:45)
[2019-02-17] MEDS ORDERED: ACETAMINOPHEN 325 MG TABLET (FP) ONE (17:14)
[2019-02-17 17:21] VITALS: BP 130/81; PULSE 55
--- NOTE | 2019-02-17 21:06 | DS ---
Physical Exam: SUBJECTIVE: Patient seen and examined. No chest pain, no SOB. BP controlled. Pt c/o of headache, no fevers, no syncope, no neck stiffness, no blurry vision. Negative trops x3, ECHO without hypokinesis. OBJECTIVE: Vital Signs Period Temp Pulse Resp BP Sys/D[place]ont Pulse Ox Last 24 Hr 97.7 F-98.4 F 55-65 14-17 118-153/69-81 100-100 PHYSICAL EXAM GENERAL: The patient is awake, alert, and fully oriented, in no acute respiratory distress. EYES: PERRL, extraocular movements intact, sclera anicteric, conjunctiva clear. ENT: moist mucous membranes. NECK: supple. LUNGS: Breath sounds equal, clear to auscultation bilaterally, no wheezes, no crackles, no accessory muscle use. HEART: Regular rate and rhythm, S1, S2 ABDOMEN: Soft, nontender, nondistended, normoactive bowel sounds EXTREMITIES: 2+ pulses, warm, well-perfused, no edema. NEUROLOGICAL: Cranial nerves II through XII grossly intact. Normal speech, gait not observed. PSYCH: Normal mood, normal affect. SKIN: Warm, dry, normal turgor, no rashes or lesions noted. LABS Laboratory Results - last 24 hr 02/17/19 02/17/19 02/17/19 05:18 05:18 06:30 WBC 9.7 RBC 4.84 Hgb 13.9 Hct 40.7 MCV 84.1 MCH 28.7 MCHC 34.1 RDW 13.0 Plt Count 270 D MPV 9.5 Absolute Neuts (auto) 5.3 Neutrophils % 55.0 D Lymphocytes % 36.0 D Monocytes % 7.4 D Eosinophils % 0.9 D Basophils % 0.7 Nucleated RBC % 0 Sodium 145 Potassium 3.7 Chloride 110 H Carbon Dioxide 27 Anion Gap 7 L BUN 13 Creatinine 0.7 Creat Clearance w eGFR 85.95 Random Glucose 101 Hemoglobin A1c % 5.7 Calcium 9.9 Total Bilirubin 0.3 AST 26 ALT 29 Alkaline Phosphatase 106 Creatine Kinase 152 Creatine Kinase Index 0.9 CK-MB (CK-2) 1.4 Troponin I < 0.02 B-Natriuretic Peptide 77.6 Total Protein 7.0 Albumin 3.9 TSH 3.80 H 02/17/19 02/17/19 10:00 11:40 WBC RBC Hgb Hct MCV MCH MCHC RDW Plt Count MPV Absolute Neuts (auto) Neutrophils % Lymphocytes % Monocytes % Eosinophils % Basophils % Nucleated RBC % Sodium Potassium Chloride Carbon Dioxide Anion Gap BUN Creatinine Creat Clearance w eGFR Random Glucose Hemoglobin A1c % Calcium Total Bilirubin AST ALT Alkaline Phosphatase Creatine Kinase 125 Creatine Kinase Index CK-MB (CK-2) Troponin I < 0.02 < 0.02 B-Natriuretic Peptide Total Protein Albumin TSH Ambulatory Orders Aspirin [ASA -] 81 mg PO DAILY 03/12/15 Olmesartan/Amlodipin/Hcthiazid [Tribenzor 20-5-12.5 mg Tablet] 1 each PO ASDIR 03/12/15 Albuterol 0.083% Nebulizer Lu [Ventolin 0.083% Nebulizer Soln -] 1 neb NEB Q6H 10/27/16 Albuterol Sulfate [Proair Respiclick] 90 mcg IH QID 10/27/16 Fluticasone/Vilanterol [Breo Ellipta 100-25 Mcg INH] 1 each IH DAILY 10/27/16 Montelukast Na [Singulair -] 10 mg PO HS 10/27/16 Nebivolol HCl [Bystolic] 5 mg PO DAILY 10/27/16 Amlodipine Besylate [Norvasc -] 5 mg PO DAILY #30 tablet 02/17/19 Pravastatin Sodium 20 mg PO HS 02/17/19 Tizanidine HCl [Zanaflex (Nf) -] 2 mg NR DAILY 02/17/19 ECHO 02/17/19: LV size, thickness and function are normal. EF- 55%-60%. E/A reversal consistent with but not diagnostic of poor LV compliance. RV is normal in size and function. Normal atrial size and function. There is mild mitral valve thickening. There is trace mitral regurgitation. The tricuspid valve is not well visualized, but is grossly normal. There is trace TR. Right ventricular systolic pressure is normal. HOSPITAL COURSE: Date of Admission:02/17/19 Date of Discharge: 02/17/19 Prehospital Course: Pt is a 58 yo F with PMHx of HTN, Costochondritis, Asthma, angina who presents with chest pain x 1 day. Pt reports chest pain that started around 1am, pressure like, 9/10, below her L breast radiating to the left arm. The pain started suddenly while at rest (sitting and watching TV), was associated with SOB. Was intermittent, lasting 5mins at every interval for about an hour till she presented in the ED. Pt reports persistently high BP for the past week, last documented at home was 168/108. There was associated headache and blurry vision associated with the chest pain, which has since resolved. In the ED she received tylenol, and sublingual NG, and the pain stopped. She has since remained chest pain free. Pt reports having a stress test last year May [address] Mackenzie Williamson [phone] ([facility]), but had a cardiac catheterization in 2012 after chest pain, without stents. Hospital Course: Patient remained chest pain free. Amlodipine was added to her home BP medications and her BP was controlled. Pt received PO tylenol for headache. Pt' s ECHO did not show any regional hypokinesis. She was discharged home to follow with her PCP tomorrow and with her assistant distribution manager in one week's time. Minutes to complete discharge: 35 Discharge Summary Reason For Visit: CHEST PAIN,ANGINA AT REST Current Active Problems Angina at rest (Acute) Chest pain (Acute) Condition: Improved - Instructions Diet, Activity, Other Instructions: You came in for chest pain that resolved after taking nitroglycerin Your blood tests, EKG and ECHO did not show any signs of a heart attack. Your blood pressure was initially high when you came in, but was controlled with your regular blood pressure medications We have added amlodipine to your medications take 5mg daily Continue your other medications as prescribed Follow up with your primary care doctor tomorrow Discuss with him about your new medication Follow up with your assistant distribution manager in one week If you think your symptoms are not getting better, with worsening chest pain, shortness of breath or worsening leg swelling, please go to the nearest emergency room. Referrals: Fede Williamson [Other] - 1 Week Cesar Osuna MD [Primary Care Provider] - 02/18/19 (Follow up for typical chest pain relieved with SL NTG negative trops and EKG and normal ECHO) Disposition: HOME - Home Medications Comprehensive Discharge Medication List: Ambulatory Orders Aspirin [ASA -] 81 mg PO DAILY 03/12/15 Olmesartan/Amlodipin/Hcthiazid [Tribenzor 20-5-12.5 mg Tablet] 1 each PO ASDIR 03/12/15 Albuterol 0.083% Nebulizer Lu [Ventolin 0.083% Nebulizer Soln -] 1 neb NEB Q6H 10/27/16 Albuterol Sulfate [Proair Respiclick] 90 mcg IH QID 10/27/16 Fluticasone/Vilanterol [Breo Ellipta 100-25 Mcg INH] 1 each IH DAILY 10/27/16 Montelukast Na [Singulair -] 10 mg PO HS 10/27/16 Nebivolol HCl [Bystolic] 5 mg PO DAILY 10/27/16 Amlodipine Besylate [Norvasc -] 5 mg PO DAILY #30 tablet 02/17/19 Pravastatin Sodium 20 mg PO HS 02/17/19 Tizanidine HCl [Zanaflex (Nf) -] 2 mg NR DAILY 02/17/19 This patient is new to me today: Yes Date on this admission: 02/17/19 Emergency Visit: Yes ED Registration Date: 02/17/19 Care time: The patient presented to the Emergency Department on the above date and was hospitalized for further evaluation of their emergent condition. Critical Care patient: No - Discharge Referral Referred to [facility] No
[2019-02-17] MEDS ORDERED: MONTELUKAST NA 10 MG TABLET PO SCH (22:00)
[2019-02-17] MEDS ORDERED: ATORVASTATIN CA 80 MG TABLET (FP) PO SCH (22:00)
== END 2019-02-17 21:03 | disposition home or self-care (01) ==
LOC: JER 05:05 → JERBED 07:31
PROVIDERS: ADMIT Internal Medicine; ATTEND Internal Medicine
PROC: 3E033NZ Introduction of Analgesics, Hypnotics, Sedatives into Peripheral Vein, Percutaneous Approach (ICD-10-PCS; principal; 2019-02-17)
DX: I20.8 Other forms of angina pectoris (principal); I10 Essential (primary) hypertension; R07.89 Other chest pain; J45.909 Unspecified asthma, uncomplicated; M94.0 Chondrocostal junction syndrome [Tietze]
CPT/HCPCS: 36415; 71045-TC-FY; 80053; 82550; 82553; 83036; 83880; 84443; 84484; 85025; 93005; 93010; 93306-TC; 96374; 99285-25; G0378; J0131

== ENCOUNTER 2020-07-01 11:38 | Emergency (ER) | payer OTHER ==
[2020-07-01 11:51] VITALS: BMI 29.4
--- NOTE | 2020-07-01 13:27 | PDOC ---
History of Present Illness - General Chief Complaint: Chest Pain Stated Complaint: CHEST PAIN Time Seen by Provider: 07/01/20 13:07 - History of Present Illness Initial Comments: Ema Alcantar is a 60 y/o female with PMH significant for angina and HTN s/p cardiac cath in 2018 presenting with left sided chest pain for the past two days. Reports left sided chest pain that is worse with deep breathing and non reproducible. States that she has similar types of chest pain every couple of months. Last episode was 2 months ago. Non exertional. No shortness of breath/fever/cough. No back pain. States that the pain is constant. No pain radiation. No dizziness/heart palpitations. SocHx: never smoker FamHx: mother of [place] at 59 y/o, father and brothers had MIs in their 80s Past History - Medical History Allergies/Adverse Reactions: Allergies Allergy/AdvReac Type Severity Reaction Status Date / Time codeine Allergy Intermediate TACHYCARDIA Verified 07/01/20 11:52 Home Medications: Ambulatory Orders Aspirin [ASA -] 81 mg PO DAILY 03/12/15 Olmesartan/Amlodipin/Hcthiazid [Tribenzor 20-5-12.5 mg Tablet] 1 each PO ASDIR 03/12/15 Albuterol 0.083% Nebulizer Lu [Ventolin 0.083% Nebulizer Soln -] 1 neb NEB Q6H 10/27/16 Albuterol Sulfate [Proair Respiclick] 90 mcg IH QID 10/27/16 Fluticasone/Vilanterol [Breo Ellipta 100-25 Mcg INH] 1 each IH DAILY 10/27/16 Montelukast Na [Singulair -] 10 mg PO HS 10/27/16 Nebivolol HCl [Bystolic] 5 mg PO DAILY 10/27/16 Amlodipine Besylate [Norvasc -] 5 mg PO DAILY #30 tablet 02/17/19 Pravastatin Sodium 20 mg PO HS 02/17/19 Tizanidine HCl [Zanaflex (Nf) -] 2 mg NR DAILY 02/17/19 Asthma: Yes Cardiac Disorders: Yes (costocondritis, cardiac cath) COPD: No HTN: Yes - Surgical History Orthopedic Surgery: Yes (left knee arthroscopy) - Reproductive History Is Patient Now?: No - Immunization History Immunization Up to Date: Yes - Psycho-Social/Smoking History Smoking History: Never smoked Have you smoked in the past 12 months: No Information on smoking cessation initiated: No - Substance Abuse Hx (Audit-C & DAST Scrn) How often the patient has a drink containing alcohol: Never Score: In Men: 4 or > Positive; In Women: 3 or > Positive: 0 Screen Result (Pos requires Nsg. Audit-10AR): Negative In the last yr the pt used illegal drug/Rx for NonMed reason: No Score: Yes response is considered Positive: 0 Screen Result (Positive result requires Nsg. DAST-10): Negative Review of Systems - Review of Systems Comments:: GENERAL/CONSTITUTIONAL: No fever or chills. No weakness._ HEAD, EYES, EARS, NOSE AND THROAT: No change in vision. No change in hearing. No sore throat._ CARDIOVASCULAR: Reports chest pain. No shortness of breath_ RESPIRATORY: Denies cough, hemoptysis_ GASTROINTESTINAL: No nausea, vomiting, diarrhea or constipation._ GENITOURINARY: No dysuria, frequency, or change in urination._ MUSCULOSKELETAL: No joint or muscle swelling or pain. No neck or back pain._ SKIN: No rash_ NEUROLOGIC: No headache, vertigo, loss of consciousness, or change in strength/sensation._ ENDOCRINE: No increased thirst. No abnormal weight change_ HEMATOLOGIC/LYMPHATIC: No anemia, easy bleeding, or history of blood clots._ ALLERGIC/IMMUNOLOGIC: No hives or skin allergy._ *Physical Exam - Vital Signs Last Vital Signs Temp Pulse Resp BP Pulse Ox 98.0 F 85 18 143/84 100 07/01/20 19:41 07/01/20 19:41 07/01/20 19:41 07/01/20 19:41 07/01/20 19:41 - Physical Exam GENERAL: Awake, alert, and oriented to person/place/time, in no acute distress_ HEAD: No signs of trauma, normocephalic, atraumatic _ EYES: PERRLA, EOMI, sclera anicteric, conjunctiva clear_ ENT: Hearing grossly normal, nares patent, oropharynx clear without exudates. No uvular deviation. Moist mucosa_ NECK: Normal ROM, supple, no lymphadenopathy, JVD, or masses_ LUNGS: No distress, speaks in full sentences, clear to auscultation bilaterally _ HEART: Regular rate and rhythm, normal S1 and S2, no murmurs appreciated, peripheral pulses normal and equal bilaterally._ ABDOMEN: Soft, nontender, normoactive bowel sounds. No guarding, no rebound. No masses_ EXTREMITIES: Normal inspection, Normal range of motion, no edema. No clubbing or cyanosis_ NEUROLOGICAL: Cranial nerves II through XII grossly intact. Normal speech, normal gait, no focal sensorimotor deficits _ SKIN: Warm, Dry, normal turgor, no rashes or lesions noted_ ED Treatment Course - LABORATORY CBC & Chemistry Diagram: 07/01/20 13:53 07/01/20 13:53 - ADDITIONAL ORDERS Additional order review: 07/01/20 13:53 RBC 5.07 MCV 85.3 MCHC 32.9 RDW 13.5 MPV 9.3 Neutrophils % 61.6 Lymphocytes % 29.7 Monocytes % 6.6 Eosinophils % 1.4 Basophils % 0.7 - Medications Given in the ED: ED Medications Discontinued Medications Generic Name Dose Route Start Last Admin Trade Name Calvinq PRN Reason Stop Dose Admin Acetaminophen 650 mg 07/01/20 13:41 07/01/20 13:56 Tylenol - PO 07/01/20 13:42 650 mg ONCE ONE Administration Sodium Chloride 1,000 mls @ 1,000 mls/hr 07/01/20 15:39 07/01/20 16:57 Normal Saline - IV 07/01/20 16:38 1,000 mls/hr ASDIR STA Administration Medical Decision Making - Medical Decision Making 07/01/20 13:26 60F hx of angina, HTN, s/p cardiac catherization, presenting today with left sided chest pain for the past two days. HEART score 3. -d dimer -cbc, cmp -ekg, trop, cxr -tsh -mg 07/01/20 14:06 EKG shows 104 bpm, NSR, sinus tachycardia, no axis deviation, no ST elevation/depression, IN 140, QTc 447. CXR negative for acute intrathoracic pathology. Labs reviewed. Will order CTA for elevated d-dimer. Laboratory Tests 07/01/20 07/01/20 07/01/20 01:53 13:53 13:53 WBC 7.3 RBC 5.07 Hgb 14.2 Hct 43.3 MCV 85.3 MCH 28.1 MCHC 32.9 RDW 13.5 Plt Count 224 MPV 9.3 Absolute Neuts (auto) 4.5 Neutrophils % 61.6 Lymphocytes % 29.7 Monocytes % 6.6 Eosinophils % 1.4 Basophils % 0.7 Nucleated RBC % 0 PT with INR 11.90 INR 1.01 PTT (Actin FS) 32.9 D-Dimer 679 H Sodium Potassium Chloride Carbon Dioxide Anion Gap BUN Creatinine Est GFR (CKD-EPI)AfAm Est GFR (CKD-EPI)NonAf Random Glucose Calcium Magnesium Total Bilirubin AST ALT Alkaline Phosphatase Creatine Kinase Troponin I Total Protein Albumin TSH 07/01/20 13:53 WBC RBC Hgb Hct MCV MCH MCHC RDW Plt Count MPV Absolute Neuts (auto) Neutrophils % Lymphocytes % Monocytes % Eosinophils % Basophils % Nucleated RBC % PT with INR INR PTT (Actin FS) D-Dimer Sodium 142 Potassium 3.8 Chloride 109 H Carbon Dioxide 26 Anion Gap 7 L BUN 9.9 Creatinine 0.7 Est GFR (CKD-EPI)AfAm 109.15 Est GFR (CKD-EPI)NonAf 94.17 Random Glucose 100 Calcium 10.1 Magnesium 2.4 Total Bilirubin 0.4 AST 34 ALT 36 Alkaline Phosphatase 131 H Creatine Kinase 149 Troponin I < 0.02 Total Protein 7.7 Albumin 4.0 TSH 1.62 07/01/20 18:54 CTA negative for signs of pulmonary embolism. Pt reassessed. Plan to d/c home with PCP and cards f/u. All questions answered. Return precautions given. Pt verbalized understanding and agreement with plan. Pt states that she has a cards appt with Dr. Williamson ([place]) on Saturday and will keep the appt. Discharge - Discharge Information Problems reviewed: Yes Clinical Impression/Diagnosis: Chest pain Condition: Stable Disposition: HOME - Admission No - Follow up/Referral Referrals: [facility] [place] [facility] [place] [Provider Group] Eric Aguilera MD [Staff Physician] - ON STAFF,NOT [Primary Care Provider] - - Patient Discharge Instructions Patient Printed Discharge Instructions: DI for Atypical Chest Pain, DI for Chest Pain Additional Instructions: Please make a follow up appointment with your primary care doctor and keep your appointment with your gas examiner Dr. Williamson on Saturday. Additional referrals are provided here if you need them. If you experience any new, worsening, or concerning symptoms, including new, worsening, or different chest pain, shortness of breath, dizziness, weakness, or any other concerns, please return to the emergency department. - Post Discharge Activity
[2020-07-01] MEDS ORDERED: ACETAMINOPHEN 325 MG TABLET (FP) PO ONE (13:41)
[2020-07-01] MEDS ORDERED: ACETAMINOPHEN 325 MG TABLET (FP) ONE (13:44)
[2020-07-01 14:11] LABS: BASO % 0.7 % (0-2.0); EOS % 1.4 % (0-4.5); HEMATOCRIT 43.3 % (32.4-45.2); HEMOGLOBIN 14.2 GM/dL (10.7-15.3); LYMPH % 29.7 % (8-40); MCH 28.1 pg (25.7-33.7); MCHC 32.9 g/dl (32.0-36.0); MEAN CELL VOLUME 85.3 fl (80-96); MEAN PLT VOLUME 9.3 fl (7.5-11.1); MONO % 6.6 % (3.8-10.2); NEUT % 61.6 % (42.8-82.8); PLATELET COUNT 224 K/MM3 (134-434); RBC 5.07 M/mm3 (3.60-5.2); RDW 13.5 % (11.6-15.6); WHITE BLOOD COUNT 7.3 K/mm3 (4.0-10.0)
[2020-07-01 14:17] LABS: INR 1.01 (0.83-1.09); PROTHROMBIN TIME (PATIENT) 11.9 SEC (9.7-13.0)
[2020-07-01 14:20] LABS: ACTIVATED PTT 32.9 SECONDS (25.2-36.5)
[2020-07-01 14:56] LABS: ALK PHOS 131 U/L (45-117); ANION GAP 7 MMOL/L (8-16); BILIRUBIN,TOTAL 0.4 mg/dL (0.2-1); BLOOD UREA NITROGEN 9.9 mg/dL (7-18); CALCIUM 10.1 mg/dL (8.5-10.1); CHLORIDE 109 mmol/L (98-107); CO2 26 mmol/L (21-32); CREATININE 0.7 mg/dL (0.55-1.3); GLUCOSE,RANDOM 100 mg/dL (74-106); MAGNESIUM 2.4 mg/dL (1.8-2.4); POTASSIUM 3.8 mmol/L (3.5-5.1); SGOT/AST 34 U/L (15-37); SGPT/ALT 36 U/L (13-61); SODIUM 142 mmol/L (136-145); TOT PROT 7.7 g/dl (6.4-8.2)
--- NOTE | 2020-07-01 15:37 | PDOC ---
Documentation entered by Asuncion Gong SCRIBE, acting as scribe for Kvng Gonzalez MD. Kvng Gonzalez MD: This documentation has been prepared by the noemiibe, Asuncion Gong SCRIBE, under my direction and personally reviewed by me in its entirety. I confirm that the documentation accurately reflects all work, treatment, procedures, and medical decision making performed by me. Attending Attestation - Resident Resident Name: [email or web address] - ED Attending Attestation I have performed the following: I have examined & evaluated the patient, The case was reviewed & discussed with the resident, I agree w/resident's findings & plan, Exceptions are as noted - HPI HPI: 07/01/20 13:43 The patient is a 60 year old female with past medical history significant for HTN who presents to the emergency department with 5 days of left sided pleuritic chest pain. Denies shortness of breath. The patient reports the pain is similar to prior episode in 2019 when she was evaluated here. Denies fever or chills. Denies leg swelling. Denies recent travel/immobilization. - Physicial Exam PE: 07/01/20 14:44 See resident exam - Medical Decision Making 07/01/20 15:15 60 F with pleuritic chest pain. EKG nonischemic. Will evaluate for PE as pt is tachycardic. - Labs, trop, ddimer 07/01/20 15:24 Ddimer 670s Labs otherwise unremarkable Will obtain CTA to r/o PE 07/01/20 18:52 CTA with no evidence of PE Pt reassessed - pain improved Vitals now stabilized s/p fluids Pt is well appearing, with normal vitals. Clinically stable for DC at this time. I discussed the physical exam findings, ancillary test results and final diagnoses with the patient. I answered all of the patient's questions. The patient was satisfied with the care received and felt comfortable with the discharge plan and treatment plan. The patient agrees to follow up with the primary care physician within 24-72 hours. Heart Score/ECG Review - History History: Slightly suspicious - Electrocardiogram EKG: Normal - Age Age: 45-65 - Risk Factors Risk Factors Heart Score: Yes Hx Hypercholesterolemia, Yes Hx Hypertension, Yes Positive family hx of cardiac disease Based on the list above the patient has:: >/=3 risk factors or Hx atherosclerotic disease - Troponin Troponin: </= normal limit - Score Heart Score - Total: 3 - ECG Impressions Comment:: 07/01/20 18:27 NSR, no RIAZ/STDs, no TWIs, axis wnl, intervals wnl, rate 104 Discharge - Discharge Information Problems reviewed: Yes Clinical Impression/Diagnosis: Chest pain Condition: Stable Disposition: HOME - Follow up/Referral Referrals: [facility] [place] [facility] [place] [Provider Group] Eric Aguilera MD [Staff Physician] - ON STAFF,NOT [Primary Care Provider] - - Patient Discharge Instructions Patient Printed Discharge Instructions: DI for Atypical Chest Pain, DI for Chest Pain Additional Instructions: Please make a follow up appointment with your primary care doctor and keep your appointment with your student support advisor Dr. Williamson on Saturday. Additional referrals are provided here if you need them. If you experience any new, worsening, or concerning symptoms, including new, worsening, or different chest pain, shortness of breath, dizziness, weakness, or any other concerns, please return to the emergency department. - Post Discharge Activity
[2020-07-01] MEDS ORDERED: SODIUM CHLORIDE 1,000 ML IV STA (15:39)
[2020-07-01 19:42] VITALS: BP 143/84; PULSE 85; TEMP 98
== END 2020-07-01 19:42 | disposition home or self-care (01) ==
LOC: JER 11:38
PROC: 3E0337Z Introduction of Electrolytic and Water Balance Substance into Peripheral Vein, Percutaneous Approach (ICD-10-PCS; principal; 2020-07-01)
DX: R07.9 Chest pain, unspecified (principal)
CPT/HCPCS: 36415; 71046-TC-FY; 71275-TC; 80053; 82550; 83735; 84443; 84484; 85025; 85379; 85610; 85730; 99284-25; Q9967

== ENCOUNTER 2021-09-27 15:41 | Emergency (ER) | payer OTHER ==
[2021-09-27 16:03] VITALS: BP 115/75; PULSE 100; TEMP 98; BMI 31.1
[2021-09-27] MEDS ORDERED: predniSONE 20 MG TABLET (UD) PO ONE (18:20)
[2021-09-27] MEDS ORDERED: FAMOTIDINE 20 MG TABLET PO ONE (18:20)
[2021-09-27] MEDS ORDERED: diphenhydrAMINE HCL 50 MG CAPSULE PO ONE (18:20)
[2021-09-27] MEDS ORDERED: diphenhydrAMINE HCL 25 MG CAPSULE (FP) PO ONE (18:23)
[2021-09-27] MEDS ORDERED: FAMOTIDINE 20 MG TABLET ONE (18:24)
[2021-09-27] MEDS ORDERED: predniSONE 20 MG TABLET (UD) ONE (18:24)
== END 2021-09-27 20:24 | disposition home or self-care (01) ==
LOC: JERFT 15:41
DX: T78.3XXA Angioneurotic edema, initial encounter (principal); T78.40XA Allergy, unspecified, initial encounter
CPT/HCPCS: 99283-25

== ENCOUNTER 2023-02-26 20:53 | Emergency (ER) | payer OTHER ==
[2023-02-26 21:05] VITALS: BP 147/82; PULSE 79; RESP 16; TEMP 98; BMI 30.2
[2023-02-26] MEDS ORDERED: DIPHTH,PERTUSS(ACELL),TET 0.5 ML DISP.SYRIN IM ONE ×2 (21:57→22:12)
[2023-02-26] MEDS ORDERED: ACETAMINOPHEN 500 MG TABLET (FP) ONE (22:11)
[2023-02-26] MEDS ORDERED: ACETAMINOPHEN 500 MG TABLET (FP) PO ONE (22:11)
== END 2023-02-26 22:21 | disposition home or self-care (01) ==
LOC: JER 20:53 → JERFT 20:53
PROC: 0HQGXZZ Repair Left Hand Skin, External Approach (ICD-10-PCS; principal; 2023-02-26)
PROC: 3E0234Z Introduction of Serum, Toxoid and Vaccine into Muscle, Percutaneous Approach (ICD-10-PCS; 2023-02-26)
DX: S61.412A Laceration without foreign body of left hand, initial encounter (principal); W25.XXXA Contact with sharp glass, initial encounter; Y93.E5 Activity, floor mopping and cleaning
CPT/HCPCS: 12001-25; 90471; 90715; 99282-25

== ENCOUNTER 2023-03-05 15:14 | Emergency (ER) | payer OTHER ==
[2023-03-05 15:27] VITALS: BP 133/65; PULSE 66; RESP 16; TEMP 97.9; BMI 29.4
== END 2023-03-05 15:55 | disposition home or self-care (01) ==
LOC: JERFT 15:14
DX: Z48.02 Encounter for removal of sutures (principal)
CPT/HCPCS: 99281-25